=== PATIENT | male | born 1960 | race Caucasian/White ===

== ENCOUNTER 2017-11-02 14:59 | Outpatient (RCR) | payer BC, SELFPAY | END 2017-11-08 23:59 | LOC: NS 14:59 | PROVIDERS: Family Provider Family Medicine; PCP Family Medicine; Visit Provider Family Medicine | DX: E66.01 Morbid (severe) obesity due to excess calories (principal); Z68.41 Body mass index [BMI] 40.0-44.9, adult; Z71.3 Dietary counseling and surveillance | CPT/HCPCS: 97802 ==

== ENCOUNTER 2017-11-21 16:01 | Outpatient (RCR) | payer BC, SELFPAY ==
[2014-10-09 14:54] VITALS: BMI 40.9
[2014-10-12 09:09] VITALS: BP 140/87
== END 2017-12-06 23:59 ==
LOC: NS 16:01
PROVIDERS: Family Provider Family Medicine; PCP Family Medicine; Visit Provider Family Medicine
DX: E66.01 Morbid (severe) obesity due to excess calories (principal); Z68.41 Body mass index [BMI] 40.0-44.9, adult; Z71.3 Dietary counseling and surveillance
CPT/HCPCS: 97803

== ENCOUNTER → 2018-08-16 09:52 | Outpatient (CLI) | payer BC, SELFPAY ==
--- NOTE | 2018-08-16 09:56 | NM_ITS ---
CLINICAL: 58-year-old male with reported history of clinical hyperparathyroidism. 99m Tc SESTAMIBI DUAL PHASE PARATHYROID SCINTIGRAPHY COMPARISON: None available FINDINGS: Following the intravenous administration of 21.4 mCi of 99m Tc sestamibi, image acquisitions of the anterior neck at approximately 15 minutes and 3.0 hours post radiopharmaceutical provision reveal: 1. Immediate static blood pool acquisitions demonstrate homogeneous radiopharmaceutical concentration by the right and left lobes of a U shaped thyroid gland. 2. Delayed images depict symmetric incomplete washout of the radiopharmaceutical from the previously defined right-left thyroid colloid. There is no evidence of focal retained radiopharmaceutical concentration on meticulous inspection. NM/Parathyroid Scan IMPRESSION: 1. There is is no definitive scintigraphic evidence of parathyroid adenoma on the current examination. 2. Symmetric incomplete washout of the radiopharmaceutical by the right-left thyroid colloid may be secondary to thyroiditis, goiter formation. Electronically Signed: Kevin Dueñas DO at 23:08 EST Tel , Service support ,
== END ==
PROVIDERS: Family Provider Family Medicine; PCP Family Medicine; Referring Provider Nurse Practitioner Family; Visit Provider Nurse Practitioner Family
DX: E21.3 Hyperparathyroidism, unspecified (principal)
CPT/HCPCS: 78070; A9500

== ENCOUNTER 2019-06-12 13:18 | Emergency (ER) | payer BC, SELFPAY ==
[2019-06-12 13:19] VITALS: BP 163/97; PULSE 89; RESP 18; TEMP 36.3; O2SAT 96; BMI 43.8
--- NOTE | 2019-06-12 14:08 | NURSING ---
DR TO PAGED
--- NOTE | 2019-06-12 14:10 | ED.DCSUM_ITS ---
History of Present Illness Chief Complaint: Lower Extremity Injury Narrative: Patient presenting due to concern for a positive ultrasound. Patient states that over the course of about the last week he has been noticing that he has some pain and swelling in his medial left calf. He reports that initially the swelling would get better with elevation of his leg, but over the course of the weekend he seemed to have decreased ability of being able to get that swelling to go down with elevation. He saw primary care who recommended that he have a duplex ultrasound performed. This was performed today, and the behavioral health technician recommended that he come to the emergency department for evaluation of the results. He denies any chest pain or shortness of breath. No recent travel or surgery history of DVT or PE or any sort of hemoptysis. Patient does deal with varicosities in his legs, is never had a vascular surgeon evaluate this. Review of systems otherwise negative. Past Medical History - Allergies and Home Meds Allergies/Adverse Reactions: Allergies Penicillins Allergy (Verified 06/12/19 13:21) Unknown acetaminophen [From Vicodin] Adverse Reaction (Verified 06/12/19 13:21) Nausea hydrocodone bitartrate [From Vicodin] Adverse Reaction (Verified 06/12/19 13:21) Nausea Primary Care Physician: Freeman Flynn III, MD [Primary Care Provider] - Past Medical History: - - Hypertension Surgical History: total hip arthroplasty Smoking Status: Never smoker Review of Systems All systems negative except as indicated Cardiovascular: Denies: Chest pain Respiratory: Denies: Dyspnea Musculoskeletal: Reports: - - Left leg pain and swelling Physical Exam Vital Signs/Narrative: Vital Signs Temp Pulse Resp BP Pulse Ox 06/12/19 13:19 97.4 F L 89 18 163/97 H 96 General: Well nourished, Well developed, No Acute Distress Head: Normocephalic, Atraumatic Eyes: Perrl, EOMI ENT: Moist mucous membranes, No rhinorrhea Neck: Supple, Nontender Cardiovascular: Regular rate, Regular rhythm, No murmurs Respiratory: No distress, CTA bilaterally, Chest nontender Abdomen: Soft, Nontender, Nondistended, Normal bowel sounds Back: Nontender, Normal Inspection Extremities: - - Asymmetric swelling of the patient's left leg with some evidence of firm palpable cords in the medial portion of the patient's calf with some overlying erythema. Normal distal pulses, normal distal sensation. Normal range of motion. Compartments are soft throughout. Skin: Normal color, No rash Neurological: Alert, Oriented x3, Cranial nerves II-XII grossly intact, Normal Strength, Normal Sensation Psychological: Normal affect, Normal Mood Diagnostic/Tx/Re-eval - Medical Decision Making Patient presented due to concern for a positive ultrasound. I was able to obtain the patient's records, he has no evidence of DVTs. He has superficial thrombophlebitis in the small saphenous, a varicosity of the greater saphenous, greater saphenous at the mid calf, greater saphenous of the mid thigh, and the clot at the mid thigh and the greater saphenous vein appears to be poorly adherent to the murray of the vessel. I discussed this with covering vascular surgery, we are in agreement that this is still superficial and the patient should be treated with an aspirin regimen as well as a compression sock. Patient will follow-up with vascular surgery as now he has significant symptomatic issues with varicosities. Patient was discharged. ED Disposition - Plan for ED Patient: Disposition: Home or Assisted Living Diagnosis: Superficial thrombophlebitis Instructions: THROMBOPHLEBITIS, Superficial Prescriptions: Compr.stocking,Thigh,Reg,Large [Compression Thigh Stocking] 1 ea MC DAILY #1 ea Prescription Printed Aspirin E.C. [Ecotrin] 81 mg PO DAILY@0800 #30 tab Prescription Printed Referrals: Con Harrison MD [STAFF PHYSICIAN] - 1-2 Weeks
[2019-06-12 14:57] VITALS: BP 143/93; PULSE 78; RESP 16; O2SAT 95
--- NOTE | 2019-06-12 14:58 | ED.RN ---
REVIEWED D/C INSTRUCTIONS, FOLLOW UP CARE, PRESCRIPTIONS, AND S/S THAT WOULD WARRANT A RETURN TO THE ED WITH PT. PT VERBALIZED AN UNDERSTANDING AND DENIES FURTHER QUESTIONS FOR THIS RN. PT SKIN P/W/D, REPS EVEN AND UNLABORED, PT A&O X 3, NO DISTRESS NOTED. PT AMBULATED OUT OF ED, GAIT STEADY.
== END 2019-06-12 14:59 | disposition home or self-care (01) ==
PROVIDERS: Emergency Provider Emergency Medicine; Family Provider Family Medicine; PCP Family Medicine
DX: I80.02 Phlebitis and thrombophlebitis of superficial vessels of left lower extremity (principal); I10 Essential (primary) hypertension; Z79.82 Long term (current) use of aspirin; Z79.899 Other long term (current) drug therapy; Z88.0 Allergy status to penicillin; Z88.5 Allergy status to narcotic agent
CPT/HCPCS: 99282

== ENCOUNTER → 2019-07-29 07:37 | Outpatient (CLI) | payer BC, SELFPAY ==
--- NOTE | 2019-07-29 07:39 | VDLE_ITS ---
Reason For Study: Variconse veins Procedure LEFT Exam performed in department. CFV is compressible, spontaneous, phasic, competent, and demonstrates normal augmentation. FV is compressible, spontaneous, phasic, competent and demonstrates normal augmentation. POP V is compressible, spontaneous, phasic, competent and demonstrates normal augmentation. T/P Trunk is compressible. PTV is compressible. LT PerV is compressible. Thrombus filled varicose veins noted in the mid medial calf. Acute superficial vein thrombosis is noted in the left GSV in the distal thigh and mid calf. SFJ is INCOMPETENT and measures 3.02 x 3.28 cm. GSV proximal thigh measures 1.12 x 1.34 cm. GSV at knee measures 0.86 x 0.95 cm. GSV INCOMPETENT throughout for greater than 0.5 seconds. SSV proximal calf is INCOMPETENT for greater than 0.5 seconds and measures 0.49 x 0.50 cm. Interpretation Summary 1. Left leg no DVT. 2. Left SVT thigh and calf GSV 3. Left SFJ reflyx at 3cm and thigh GSV 12mm and 10mm with reflux. 4. Left LSV reflux at 5mm. Ordering Physician: Con Harrison Referring Physician: JEMMA Flynn M.D. Performed By: Ruth Weber RVT
== END ==
PROVIDERS: Family Provider Family Medicine; PCP Family Medicine; Referring Provider Surgery Vascular Surgery; Visit Provider Surgery Vascular Surgery
DX: I83.892 Varicose veins of left lower extremity with other complications (principal); I47.1 Supraventricular tachycardia
CPT/HCPCS: 93971

== ENCOUNTER → 2020-12-02 10:20 | Outpatient (CLI) | payer BC, SELFPAY ==
--- NOTE | 2020-12-02 12:54 | NEURO_ITS ---
NCS and/or EMG Patient Report Ordering Doctor: Freeman Flynn Jr. DATE OF SERVICE: 12/02/20 Calvin Grullon presents for electrodiagnostic testing of the upper limbs. He reports numbness and tingling in both hands, worse on the right side. Electrodiagnostic testing: Median motor nerve demonstrates prolonged distal latency bilaterally with normal amplitude on the right side. Left median motor amplitude is reduced as is median motor conduction velocity bilaterally. Prolonged median sensory latency at the wrist bilaterally. Normal ulnar and radial sensory responses. Prolonged left median F wave is noted. Ulnar motor responses within normal limits. On needle EMG, all muscles tested in the upper limb showed no evidence of denervation with normal motor unit action potentials. Electrodiagnostic impression: This is an abnormal study. 1. Electrodiagnostic findings demonstrate bilateral median mononeuropathy. Th is is consistent with a moderate bilateral carpal tunnel syndrome. 2. No electrodiagnostic evidence is noted for cervical radiculopathy. If there are any further questions, please do not hesitate to contact me
== END ==
PROVIDERS: PCP Family Medicine; Referring Provider Family Medicine; Visit Provider Family Medicine
DX: M54.2 Cervicalgia (principal); M54.12 Radiculopathy, cervical region
CPT/HCPCS: 95886; 95913

== ENCOUNTER 2023-10-11 13:35 | Emergency (ER) | payer BC, SELFPAY ==
[2023-10-11 13:36] VITALS: BP 175/120; PULSE 104; RESP 14; TEMP 35.8; O2SAT 100
[2023-10-11 13:47] LABS: Bacteria 0 SEEN /hpf (None Seen); Mucous, Urine 0 SEEN /hpf (<or=2+); Squamous Epithelial Cells - UA 0 SEEN /hpf (0-5); White Blood Cells 0 SEEN /hpf (0-5)
[2023-10-11 13:55] LABS: Color, Urine Yellow (Yellow); Glucose, Dipstick Normal (Normal); Leukocyte Esterase-Dipstick Negative /ul (Negative); Nitrite-Dipstick Negative (Negative); Occult Blood-Urine 150 /ul (Negative); Protein-Dipstick 30 mg/dl (Negative); Specific Gravity, Urine 1.025 (1.002-1.030); Urine Bilirubin Dipstick Negative (Negative); Urine Clarity Clear (Clear); Urine Urobilinogen Normal (Normal)
[2023-10-11 14:05] LABS: Ketone-Dipstick 150 mg/dl (Negative)
[2023-10-11 14:08] LABS: Red Blood Cells-Urine 5-10 SEEN /hpf (0-5)
--- NOTE | 2023-10-11 14:18 | CT_ITS ---
HISTORY: Kidney stone. TECHNIQUE: Helically acquired images were obtained of the abdomen and pelvis without oral or IV contrast. A radiation dose optimization technique was used for this scan. 561 images. COMPARISON: 10/09/2014. FINDINGS: LOWER CHEST: Lung bases clear. Coronary artery calcification present. BOWEL: Bowel nondilated. Suture at the cecum. Colonic diverticulosis without focal pericolonic inflammatory change. PERITONEUM: No significant free fluid. LIVER: Unremarkable. GALLBLADDER/BILIARY TREE: Multiple gallstones extending into the gallbladder neck. SPLEEN/ADRENAL GLANDS: Nonenlarged. PANCREAS: Mild proximal atrophy. No peripancreatic inflammation. KIDNEYS AND URETERS: Mild left hydroureteronephrosis and perinephric stranding secondary to a 1 mm ureterovesical junction calculus. 10 mm right renal cyst. VESSELS: No abdominal aortic aneurysm. Mild atherosclerosis. PELVIC ORGANS: Small prostate calcifications. ABDOMINAL WALL: Small fat-containing umbilical and inguinal hernias. BONES: Mild degenerative change. Left hip arthroplasty in place. CT/Abdomen/Pelvis without Cont IMPRESSION: Mild left hydronephrosis secondary to a 1 mm UVJ calculus. Small right renal cyst. Cholelithiasis. Colonic diverticulosis without acute diverticulitis. Interval appendectomy. Electronically Signed: Matilde Estrada MD at 15:23 EST ,
--- NOTE | 2023-10-11 14:18 | EDS_ITS ---
HPI History of Present Illness Chief Complaint: Abd Pain Narrative Narrative: 63-year-old male past medical history of chronic back pain, presents with left- sided flank pain that began this morning at 10:00. This was approximately 4 hours ago. He denies any fevers or chills. He is nauseated but has not vomited. He has not taken anything for the pain as of yet. He denies any dysuria or hematuria. No exacerbating or alleviating factors. It is mainly in his left flank radiating towards the front. No testicular pain. He has history of remote kidney stone. PFSH PFS Home Medications lisinopril 10 mg tablet 5 mg PO DAILY 10/09/14 [History Last Taken 10/08/14] aspirin 81 mg tablet,delayed release 81 mg PO DAILY@0800 #30 tabs 06/12/19 [Rx Last Taken Unknown] compr.stocking,thigh,reg,large #1 ea 06/12/19 [Rx Last Taken Unknown] meloxicam 15 mg tablet 15 mg PO DAILY 06/12/19 [History Last Taken Unknown] ketorolac 10 mg tablet 10 mg PO TID PRN pain 5 days #15 tabs 10/11/23 [Rx Last Taken Unknown] oxycodone-acetaminophen 5 mg-325 mg tablet (Percocet) 1 tab PO Q6H PRN pain 3 days #12 tabs 10/11/23 [Rx Last Taken Unknown] tamsulosin 0.4 mg capsule (Flomax) 0.4 mg PO QHS #10 caps 10/11/23 [Rx Last Taken Unknown] Allergy/AdvReac Type Severity Reaction Status Date / Time Penicillins Allergy Unknown Verified 06/12/19 13:21 acetaminophen [From Vicodin] AdvReac Nausea Verified 06/12/19 13:21 hydrocodone bitartrate AdvReac Nausea Verified 06/12/19 13:21 [From Vicodin] Social History Smoking Status: Never smoker ROS ROS ED ROS Narrative Constitutional: No fever, no chills. HEENT: No sore throat. No neck pain. No loss of vision. No rhinorrhea. Cardiovascular: No chest pain. No palpitations. No pedal edema. Respiratory: No cough, no shortness of breath. Abdominal: No abdominal pain. No nausea. No vomiting. Genitourinary: No dysuria. No hematuria. Positive left flank pain radiating towards front. Musculoskeletal: No myalgias. No arthralgias. Neurologic: No headaches. No dizziness. No lightheadedness. Skin: No rash. No change in color. Psychiatric: No depression. No anxiety. EXAM Physical Exam Narrative Exam Narrative: Afebrile. Vital signs noted. HEENT: Normocephalic. Atraumatic. PERRL, EOMI. Neck soft and supple. No point tenderness or step off. Cardiovascular: Regular rate and rhythm. No murmurs, rubs, or gallops appreciated. Respiratory: No tachypnea. Lungs clear to auscultation bilaterally. Gastrointestinal: Abdomen soft, nontender, with normoactive bowel sounds. No rebound or guarding. No CVA tenderness to percussion. Neurological: Awake. Alert. Nonfocal, nonlateralizing. Skin: No rash. Normal color. No pallor. Musculoskeletal: No pedal edema. Full range of motion extremities. Const Vital Signs: 10/11/23 13:36 10/11/23 14:19 Temperature 96.5 F L Temperature Source Temporal Pulse Rate 104 H Respiratory Rate 14 Respiratory Effort Normal Respiratory Depth Normal Respiratory Pattern Normal Blood Pressure 175/120 H Blood Pressure Mean 138 Pulse Ox 100 Oxygen Delivery Method Room Air Room Air MDM MDM MDM Narrative Medical decision making narrative: In the differential diagnosis is ureterolithiasis with ureteral colic versus pyelonephritis versus colitis. However, the history and physical is not supportive of colitis as he is not having diarrhea or other symptoms. I reviewed his laboratory work and he has normal white count of 10.3, hemoglobin normal at 15.3, hematocrit 45.0, normal platelet count of 285. CMP was obtained and he has slightly elevated BUN of 25 which I think is nonspecific, creatinine normal at 1.16, LFTs are grossly normal except for alk phos slightly elevated at 125 which I think is nonspecific. Urinalysis was obtained and reviewed and he has 5-10 RBCs but 0 WBCs. I do not feel antibiotics are indicated. CT of the abdomen pelvis without contrast was also obtained and I reviewed the radiology report which shows left hydronephrosis secondary to a 1 mm stone at the left ureterovesicular junction. After he received Toradol, he is comfortable and lying in bed. I feel he can be discharged to follow-up with urology. He was written prescriptions for Toradol, Flomax, and Percocet as needed for breakthrough pain. I do not feel antibiotics are indicated because he does not have infected urine. He was told of the risk of dizziness and lightheadedness with the use of Flomax, and additionally was told not to take Toradol and meloxicam, only 1 or the other. I feel he be discharged to follow-up. He was referred to Dr. Salinas. Return instructions were reviewed. Disposition is discharged home in stable condition. History & Record Review Discussion w/independent historian: Patient Additional record(s) reviewed:: Prior ED visit and Prior labs Lab Data Attestation: I reviewed the patient's lab results. Labs: Laboratory Results - last 24 hr 10/11/23 10/11/23 13:40 14:05 WBC 10.3 RBC 5.31 Hgb 15.3 Hct 45.0 MCV 84.7 MCH 28.8 MCHC 34.0 RDW Std Deviation 38.6 RDW Coeff of Margie 12.6 Plt Count 285 MPV 9.4 Immature Gran % (Auto) 1.000 H Neut % (Auto) 86.0 H Lymph % (Auto) 8.7 L [place] % (Auto) 3.6 Eos % (Auto) 0.3 Baso % (Auto) 0.4 Absolute Neuts (auto) 8.9 H Absolute Lymphs (auto) 0.90 Nucleated RBC % 0 Sodium 137 Potassium 4.1 Chloride 107 Carbon Dioxide 24.0 Anion Gap 6 BUN 25 H Creatinine 1.16 Est GFR (MDRD) Af Amer 82 Est GFR (MDRD) Non-Af 68 BUN/Creatinine Ratio 21.6 H Glucose 150 H Calcium 11.2 H Total Bilirubin 0.80 AST 22 ALT 37 Alkaline Phosphatase 125 H Total Protein 7.8 Albumin 3.9 Globulin 3.9 Albumin/Globulin Ratio 1.0 Urine Color Yellow Urine Clarity Clear Urine pH 5.0 Ur Specific [place] 1.025 Urine Protein 30 H Urine Glucose (UA) Normal Urine Ketones 150 A* Urine Occult Blood 150 H Urine Nitrite Negative Urine Bilirubin Negative Urine Urobilinogen Normal Ur Leukocyte Esterase Negative Urine RBC 5-10 SEEN Urine WBC 0 SEEN Ur Squamous Epith Cells 0 SEEN Urine Bacteria 0 SEEN Urine Mucus 0 SEEN Radiography Diagnostic Testing: Clinical Impression(s) from Imaging Studies Abdomen/Pelvis CT 10/11/23 14:18 IMPRESSION: Mild left hydronephrosis secondary to a 1 mm UVJ calculus. Small right renal cyst. Cholelithiasis. Colonic diverticulosis without acute diverticulitis. Interval appendectomy. Electronically Signed: Matilde Estrada MD at 15:23 EST Reading Location ID and State: [facility] / [place] Tel , Service support , Discharge Plan Triage Chief Complaint: Abd Pain Other Complaint: Flank Pain Shortness of Breath ED Provider: Indra Singh Dx/Rx/DC Orders Clinical Impression: Hydronephrosis, Ureteral calculus, left Instructions: ED Kidney Stone with Pain Prescriptions: New tamsulosin [Flomax] 0.4 mg capsule 0.4 mg PO QHS Qty: 10 0RF ketorolac 10 mg tablet 10 mg PO TID PRN (Reason: pain) 5 Days Qty: 15 0RF oxycodone-acetaminophen [Percocet] 5-325 mg tablet 1 tab PO Q6H PRN (Reason: pain) 3 Days Qty: 12 0RF No Action lisinopril 10 MG tablet 5 mg PO DAILY Patient Comments: control blood pressure meloxicam 15 MG tablet 15 mg PO DAILY Patient Comments: TAKE 1 TABLET BY MOUTH ONCE DAILY. WITH FOOD. aspirin 81 MG tablet 81 mg PO DAILY@0800 Qty: 30 0RF (DME) compr.stocking,thigh,reg,large 1 EACH misc 1 ea MC DAILY Qty: 1 0RF Primary Care Provider: Care Physician,No Primary Referrals: Nguyễn Salinas MD [Med Staff - Active Staff] - 3-5 Days if not improving Care Physician,No Primary [Primary Care Provider] - Activity Restrictions/Additional Instructions: Do not take Toradol with Meloxicam/Mobic. Take one or the other. Return with Fever, intractable pain, new or worsening symptoms. Disposition Disposition: Home, Self Care
[2023-10-11 14:20] LABS: Absolute Neutrophil Count 8.9 X10^3/uL (2.0-7.7); Basophil# 0.04 X10^3/uL; Basophil% 0.4 % (0-1); Eosinophil# 0.03 X10^3/uL; Eosinophils% 0.3 % (0-5); Hemoglobin 15.3 g/dL (13.0-16.5); Lymphocyte % 8.7 % (19-41); Mean Corpuscular Hgb 28.8 pg (27.0-32.0); Mean Corpuscular Volume 84.7 fL (80-94); Mean Platelet Vol. 9.4 fl (6.2-12.0); Monocyte# 0.37 X10^3/uL; Monocyte% 3.6 % (0-10); NRBC Flagged by Analyzer 0 % (0-5); Neutrophil # 8.89 X10^3/uL (2.7-7.7); Platelet Count 285 K/mm3 (150-450); RBC Distribution Width CV 12.6 % (11.6-14.6); RBC Distribution Width SD 38.6 fl (35.1-43.9); Red Blood Count 5.31 M/mm3 (4.6-6.2); White Blood Count 10.3 K/mm3 (4.4-11.0)
[2023-10-11] MEDS: Ketorolac 30 MG/ML Syringe IV (14:26)
[2023-10-11] MEDS: Ondansetron 4 MG/2 ML Vial IV (14:26)
[2023-10-11 14:36] LABS: AST(SGOT) 22 U/L (15-37); Alanine Aminotransfer ALT/SGPT 37 U/L (16-61); Albumin, Serum 3.9 g/dL (3.2-5.0); Alkaline Phosphatase 125 U/L (45-117); Anion Gap 6 (5-15); BUN 25 mg/dL (7-18); BUN/Creat Ratio 21.6 RATIO (10-20); Calcium,Total 11.2 mg/dL (8.5-10.1); Chloride 107 mmol/L (98-107); Creatinine, Serum 1.16 mg/dL (0.70-1.30); EST Glomerular Filtration Rate 68 mL/min (>60); Est Glom Filt Rate - Afr Amer 82 mL/min (>60); Globulin 3.9 g/dL (2.2-4.2); Glucose 150 mg/dL (74-106); Potassium 4.1 mmol/L (3.5-5.1); Protein, Total 7.8 g/dL (6.4-8.2); Sodium Level 137 mmol/L (136-145)
[2023-10-11 16:11] VITALS: BMI 41.2
== END 2023-10-11 16:12 | disposition home or self-care (01) ==
PROVIDERS: Emergency Provider Emergency Medicine; Visit Provider Emergency Medicine
DX: N13.2 Hydronephrosis with renal and ureteral calculous obstruction (principal); M54.9 Dorsalgia, unspecified; G89.29 Other chronic pain; R06.02 Shortness of breath; Z79.82 Long term (current) use of aspirin; Z79.899 Other long term (current) drug therapy
CPT/HCPCS: 74176; 80053; 81001; 85025; 96374; 96375; 99285; J7030; A4216; J2405